=== PATIENT | male | born 1960 | race African-American/Black ===

== ENCOUNTER 2019-09-06 11:03 | Inpatient (IN) ==
[2019-09-06 12:06] LABS: BASO# 0.02 X1000 (0.0-0.2); BASO% 0.5 % (0.0-0.8); EOS# 0.12 X1000 (0.0-0.7); EOS% 2.7 % (0.0-10.0); HEMATOCRIT 45.9 % (42.0-52.0); HEMOGLOBIN 15.3 g/dL (14.0-18.0); LYMPH% 47.7 % (20.5-51.1); MCH 30.4 PG (27-31); MCHC 33.3 g/dL (33-37); MCV 91.1 FL (81-99); MONO# 0.36 X1000 (0.11-0.59); MONO% 8.2 % (1.7-9.3); NEUT% 40.9 % (42.2-75.2); PLT 264 X1000 (130-400); RBC 5.04 XMIL (4.7-6.1)
[2019-09-06 12:25] LABS: AGAP 15; ALB/GLOB RATIO 1.4; ALBUMIN 4.6 g/dL (3.5-5.0); ALKALINE PHOSPHATASE 94 U/L (32-122); BUN 9 mg/dL (8-22); CALCIUM 10.1 mg/dL (8.8-10.2); CHLORIDE 100 mmol/L (98-107); COSMO 274; ESTIMATED GFR > 60; GLUCOSE 92 mg/dL (70-104); GOT 22 U/L (10-34); GPT 23 U/L (10-44); LIPASE 23 U/L (13-60); POTASSIUM 4.6 mmol/L (3.5-5.1); SODIUM 138 mmol/L (136-145); TCO2 23 mmol/L (25-35); TOTAL BILIRUBIN 0.79 mg/dL (0.20-1.00)
[2019-09-06 12:30] LABS: INR 1.04; PROTIME 13.7 Seconds (11.0-16.0)
[2019-09-06 12:31] LABS: PTT 35.8 Seconds (22.3-41.8)
[2019-09-06 12:42] LABS: CK PROFILE 252 U/L (24-204)
[2019-09-06 13:28] LABS: URINE SOURCE CLEAN CATCH
[2019-09-06 13:44] LABS: BILIRUBIN URINE NEGATIVE (NEGATIVE); BLOOD URINE NEGATIVE (NEGATIVE); COLOR YELLOW; GLUCOSE URINE NEGATIVE (NEGATIVE); KETONE URINE NEGATIVE (NEGATIVE); LEUKOCYTES URINE NEGATIVE (NEGATIVE); NITRITE URINE NEGATIVE (NEGATIVE); PH URINE 6.5; PROTEIN URINE NEGATIVE (NEGATIVE); SP GRAVITY URINE 1.009; TURBIDITY URINE CLEAR (CLEAR); UROBILINOGEN URINE NORMAL (NORMAL)
[2019-09-06 13:46] LABS: UR EPITHELIAL CELLS <10 /HPF (<10); URINE BACTERIA NEGATIVE /HPF; URINE RBC <10 /HPF (<10); URINE WBC <10 /HPF (<10)
[2019-09-06 13:56] LABS: CK INDEX 1.1 (0.0-2.5); CK-MB 2.71 ng/mL (0.0-5.0)
[2019-09-07 08:30] LABS: BASO# 0.03 X1000 (0.0-0.2); BASO% 0.6 % (0.0-0.8); EOS# 0.18 X1000 (0.0-0.7); EOS% 3.5 % (0.0-10.0); HEMATOCRIT 48.1 % (42.0-52.0); LYMPH# 2.71 X1000 (1.2-3.4); MCH 30.4 PG (27-31); MCHC 33.3 g/dL (33-37); MCV 91.4 FL (81-99); MONO# 0.54 X1000 (0.11-0.59); MONO% 10.4 % (1.7-9.3); MPV 9.9 FL (7.4-10.4); NEUT# 1.75 X1000 (1.4-6.5); NEUT% 33.5 % (42.2-75.2); PLT 265 X1000 (130-400); RBC 5.26 XMIL (4.7-6.1); RDW 13.9 % (11.5-14.5); WBC 5.21 X1000 (4.8-10.8)
[2019-09-08 07:21] LABS: BASO# 0.02 X1000 (0.0-0.2); BASO% 0.5 % (0.0-0.8); EOS# 0.13 X1000 (0.0-0.7); EOS% 3.1 % (0.0-10.0); HEMATOCRIT 47.6 % (42.0-52.0); HEMOGLOBIN 15.7 g/dL (14.0-18.0); LYMPH# 2.56 X1000 (1.2-3.4); LYMPH% 60.7 % (20.5-51.1); MCH 30.3 PG (27-31); MCV 91.7 FL (81-99); MONO# 0.32 X1000 (0.11-0.59); MONO% 7.6 % (1.7-9.3); MPV 9.9 FL (7.4-10.4); NEUT# 1.19 X1000 (1.4-6.5); NEUT% 28.1 % (42.2-75.2); PLT 263 X1000 (130-400); RBC 5.19 XMIL (4.7-6.1); WBC 4.22 X1000 (4.8-10.8)
[2019-09-08 08:15] LABS: AGAP 11; BUN 13 mg/dL (8-22); CHLORIDE 97 mmol/L (98-107); COSMO 274; CREATININE 1.2 mg/dL (0.7-1.2); GLUCOSE 105 mg/dL (70-104); POTASSIUM 4.2 mmol/L (3.5-5.1); SODIUM 137 mmol/L (136-145); TCO2 29 mmol/L (25-35)
[2019-09-08 17:48] VITALS: BP 162/94
== END 2019-09-08 17:40 | disposition short-term general hospital (02) | DRG 287 ==
LOC: 3N 11:03 → ED 11:03 → OBSVTOIN 18:38 → SUATTDRO 18:38 → ICU 09-08 14:07
PROVIDERS: ATTEND Internal Medicine